=== PATIENT | male | born 1980 | race Caucasian/White ===

== ENCOUNTER 2021-01-28 08:47 | Observation (INO) | payer OTHER, SELFPAY ==
[2021-01-28] VITALS (8 sets, daily range): BP systolic 144–177; BP diastolic 88–105; PULSE 80–88; RESP 14–20; TEMP 36.3–37.6; O2SAT 97–100
--- NOTE | ~2021-01-28 | CT_ITS ---
EXAMINATION: CT abdomen pelvis w con EXAM DATE: 01/28/2021 09:53 INDICATION: Left lower quadrant pain. TECHNIQUE: Spiral CT of the abdomen and pelvis was performed following intravenous injection of 100 m L Omnipaque 350. Axial, coronal and sagittal images of the abdomen and pelvis were reviewed. The do se-length product (DLP) for this examination was 544.42 mGy-cm. The exposure was tailored according to patient size (auto mA exposure control), and iterative reconstruction (ASIR) was used as additiona l dose reduction technique. There is no prior study for comparison. FINDINGS: The liver, spleen, adrenal glands and pancreas are unremarkable. Gallbladder is unremarkab le. No biliary obstruction. Portal and splenic veins are patent. Kidneys enhance symmetrically. T here is no hydronephrosis. There is left inferior calyceal stone measuring 7 mm in size. The prostat e is unremarkable. The bladder is unremarkable. There is no retroperitoneal or pelvic lymphadenopat hy. Small umbilical fat-containing hernia. Scattered colonic diverticulosis. There is moderate amount of inflammation along the descending colon consistent with acute diverticulitis, with tiny foci of adjacent extraluminal gas consistent with mi croperforation. No gross free intraperitoneal gas. The appendix is normal. The stomach and small bow el are unremarkable. The heart is normal in size. There are no pericardial or pleural effusions. T he lung bases are unremarkable. There are no osteoblastic or osteolytic lesions identified. IMPRESSION: 1. Descending colonic diverticulitis complicated by microperforation. No abscess or gross free intra peritoneal air. 2. Left nephrolithiasis. Reviewed, dictated and finalized at location G. IMPRESSION: 1. Descending colonic diverticulitis complicated by microperforation. No absce ss or gross free intraperitoneal air. 2. Left nephrolithiasis.
--- NOTE | 2021-01-28 09:01 | ED.ABDPAIN ---
HPI - Abdominal Pain General Chief Complaint: Abdominal Pain Stated Complaint: abd pain Time Seen by Provider: 01/28/21 08:59 Source: patient Mode of arrival: ambulatory Limitations: no limitations History of Present Illness HPI narrative: Patient presents with left lower quadrant pain that started yesterday, denies any radiation, aggravating or relieving factors, associated with chills and nausea. History of seasonal allergy. Patient is a smoker, drinks occasionally, uses marijuana occasionally. No history of abdominal surgery. Related Data Allergies Allergy/AdvReac Type Severity Reaction Status Date / Time No Known Allergies Allergy Verified 01/28/21 08:59 Review of Systems Review of Systems: CONSTITUTIONAL: Denies fever, chills, or sweats. EYES: Denies visual changes, redness, or discharge. ENT: Denies rhinorrhea, congestion, sore throat, or otalgia. CARDIOVASCULAR: Denies chest pain, palpitations, or edema. RESPIRATORY: Denies cough or dyspnea. GASTROINTESTINAL: Denies abdominal pain, nausea, vomiting, or diarrhea. GENITOURINARY: Denies dysuria or hematuria. SKIN: Denies rash or itching. MUSCULOSKELETAL: Denies back pain, joint pain, or myalgia. NEUROLOGIC: Denies headache, numbness, or weakness. PSYCHIATRIC: Denies anxiety or depression. Exam Narrative: General appearance: Well-developed, well-nourished Skin: Normal color Head: Normocephalic, nontraumatic Eyes: Clear conjunctiva ENT: Oropharynx normal, ears normal, nose normal Neck: Supple, nontender Chest and respiratory: Airway patent, no respiratory distress, no accessory muscle use Heart: Regular rate/rhythm Abdomen: Soft, moderate tenderness left lower quadrant, slight guarding and rebound Vascular: Normal peripheral pulses, normal capillary refill. Musculoskeletal: Normal range of motion, nontender back Neurologic: Alert and oriented ?3, BUSINESS ADVISOR is normal as tested, no gross motor deficit Course Course Emergency Course: Stable, improving Vital Signs Vital signs: Vital Signs Temperature 36.3 C L 01/28/21 08:56 Pulse Rate 85 01/28/21 08:56 Respiratory Rate 20 01/28/21 08:56 Blood Pressure 177/105 H 01/28/21 08:56 Pulse Oximetry 98 01/28/21 08:56 Temperature 36.3 C L 01/28/21 08:56 Pulse Rate 85 01/28/21 08:56 Respiratory Rate 20 10/08/21 08:56 Blood Pressure 155/94 H 01/28/21 09:31 Pulse Oximetry 97 01/28/21 09:31 MDM - Abdominal Pain MDM Narrative Medical decision making narrative: Patient presents with left lower quadrant pain. Diverticulitis is my concern. Labs, CT abdomen pelvis with IV contrast, IV fluid, IV Dilaudid and Zofran ordered. Differential Diagnosis Differential diagnosis: Likely abdominal pain, constipation, diverticulitis and small bowel obstruction Lab Data Result diagrams: 01/28/21 09:12 01/28/21 09:12 Labs: Lab Results 01/28/21 01/28/21 01/28/21 Range/Units 09:12 09:12 10:11 WBC 15.9 H (4.5-10.0) K/mm3 RBC 5.19 (4.6-6.20) M/mm3 Hgb 16.2 (14.0-18.0) g/dL Hct 46.2 (42.0-52.0) % MCV 89.0 (80-100) fl MCH 31.2 (26-34) pg MCHC 35.1 (32-36) g/dl RDW 12.0 (11.5-14.5) % Plt Count 200 (150-375) k/mm3 MPV 9.4 (7.4-10.4) fl Immature Gran % (Auto) 0.4 (0-0.5) % Neut % (Auto) 82.6 H (45.5-73.1) % Lymph % (Auto) 7.7 L (18.3-44.2) % [place] % (Auto) 7.5 (2.6-8.5) % Eos % (Auto) 1.5 (0-4.4) % Baso % (Auto) 0.3 (0.2-1.2) % Lymph # (Auto) 1.22 (0.9-3.2) K/mm3 [place] # (Auto) 1.2 H (0.1-0.6) K/mm3 Eos # (Auto) 0.2 (0-0.3) K/mm3 Baso # (Auto) 0.1 (0.0-0.1) K/mm3 Abs Immat Gran (auto) 0.06 H (0.00-0.031)
[2021-01-28] MEDS: SODIUM CHLORIDE 0.9% IV 1,000 ML 999 ML IV CONT (09:19)
[2021-01-28] MEDS: ONDANSETRON INJ 4 MG/2 ML VIAL IV PUSH ×2 (09:19→11:30)
[2021-01-28 09:23] LABS: Basophils Absolute Auto 0.1 K/mm3 (0.0-0.1); Basophils Percent Auto 0.3 % (0.2-1.2); Eosinophils Absolute Auto 0.2 K/mm3 (0-0.3); Eosinophils Percent Auto 1.5 % (0-4.4); Hematocrit 46.2 % (42.0-52.0); Hemoglobin 16.2 g/dL (14.0-18.0); Immature Granulocyte Absolute 0.06 K/mm3 (0.00-0.031); Immature Granulocyte Percent A 0.4 % (0-0.5); Lymphocytes Absolute Auto 1.22 K/mm3 (0.9-3.2); Lymphocytes Percent Auto 7.7 % (18.3-44.2); Mean Corpuscular HGB Conc 35.1 g/dl (32-36); Mean Corpuscular Hemoglobin 31.2 pg (26-34); Mean Platelet Volume 9.4 fl (7.4-10.4); Monocytes Absolute Auto 1.2 K/mm3 (0.1-0.6); Monocytes Percent Auto 7.5 % (2.6-8.5); Neutrophils Absolute Auto 13.2 K/mm3 (1.3-6.7); Neutrophils Percent Auto 82.6 % (45.5-73.1); Platelet Count Result 200 k/mm3 (150-375); Red Blood Count 5.19 M/mm3 (4.6-6.20); White Blood Count 15.9 K/mm3 (4.5-10.0)
[2021-01-28 09:33] LABS: Alanine Aminotransferase 27 U/L (4-50); Albumin Level 4.7 g/dL (3.5-5.1); Alkaline Phosphatase 56 U/L (38-126); Anion Gap 8 mmol/L (8-16); Aspartate Amino Transferase 25 U/L (17-59); Bilirubin,Total 0.9 mg/dL (0.2-1.3); Blood Urea Nitrogen 15 mg/dL (9-20); Calcium 9.4 mg/dL (8.4-10.2); Carbon Dioxide 28 mmol/L (22-30); Chloride 104 mmol/L (98-107); Estimated CRCL calculation 100 ml/min; Estimated Glomerular Filt Rate > 60; Glucose 129 mg/dL (65-110); Lipase 235 U/L (23-300); Sodium 140 mmol/L (137-145)
[2021-01-28 10:40] LABS: Add Urine Microscopic? YES; Appearance Urine Clear (Clear); Bilirubin Urine Negative (Negative); Blood Urine 1+ (Negative); Color Urine Yellow (Yellow); Glucose Urine UA Negative (Negative); Ketones Urine 1+ mg/dL (Negative); Leukocyte Esterase Ur Negative LEU/UL (Negative); Mucus Urine Rare /lpf; Nitrate Urine Negative (Negative); Protein Urine Negative (Negative); Urobilinogen Urine Negative mg/dL (<2.0); WBC Urine 0-3 /hpf
[2021-01-28 10:41] LABS: Specific Grav Ur 1.043 (1.001-1.035)
[2021-01-28] MEDS: SODIUM CHLORIDE 0.9% IV 1,000 ML 150 ML IV CONT (11:30)
[2021-01-28] MEDS: HYDROmorphone HCL INJ (*CRX) 1 MG/ML SYR 0.5 MG IV PUSH (11:31)
[2021-01-28] MEDS: metroNIDAZOLE 500 MG/ISO 100ML 500 MG/100 ML BAG 100 MG IVPB ×2 (11:31→21:47)
--- NOTE | 2021-01-28 13:11 | ADMGEN ---
This patient, Roddy Tong, was admitted to Medical Room 341-01. Patient/family oriented to hospital policies and general routines including ID bracelet, bed and alarms, visiting hours, pain management, procedures, bathroom and other care routines, personal items, smoking policy, room service/diet, and visiting hours. Information on how to activate the Rapid Response Team has been discussed. Patient/Family are encouraged to report perceived risks to care and to ask questions if they do not understand what they are told or what they should do. Patient resting in bed resting comfortably with no complaints at this time. Will continue to monitor patient.
--- NOTE | 2021-01-28 14:26 | PM.IMHP ---
H&P: HPI History of Present Illness Date/Time: 01/28/21 14:26 This is a 40-year-old male patient who has a history of diverticulosis as well as PE and DVTs. The patient stated that he tried to change his diet to eat healthier. The patient stated that he had Mosotho food with jalapeno peppers. The patient came to the emergency room today with left lower quadrant pain that started yesterday. The patient has chills and nausea as well. The patient does use marijuana on a nightly basis. Abdominal pelvis CT was read as descending colonic diverticulitis complicated by microperforation. No abscess or gross free intraperitoneal air. Left nephrolithiasis. The patient stated that he has not had any previous history of any kidney stones. The patient was started on IV fluids, Dilaudid cough Levaquin, Flagyl, and Zofran. surgery has been consulted agree to see the patient. The patient stated that he was seen by surgeon down in the emergency room. The patient has been started on Flagyl and Levaquin. The patient is being admitted for observation status on the date of service of 01/28/2021. Chief Complaint: Abdominal pain Review of Systems Review of Systems: All systems reviewed & are unremarkable except as noted in HPI and below Constitutional: Constitutional: Reports as per HPI and Reports no additional constitutional complaints Eyes: Eyes: Reports as per HPI and Reports no additional eye complaints ENT: Reports system reviewed and no additional complaints, except as documented and Reports Normal hearing present Cardiovascular: Cardiovascular: Reports no additional cardiovascular complaints Respiratory: Respiratory: Reports no additional respiratory complaints and Reports no additional respiratory complaints Gastrointestinal: Gastrointestinal: Reports as per HPI and Reports no additional gastrointestinal complaints Musculoskeletal: Musculoskeletal: Reports no additional musculoskeletal complaints Integumentary/Breasts: Skin/Breast: Reports system reviewed and no additional complaints, except as docu and Reports as per HPI Neurologic: Reports system reviewed and no additional complaints, except as documented, Reports as per HPI and Reports Normal hearing present Psychiatric: Psychiatric: Reports no additional psychiatric complaints and Reports as per HPI Endocrine: Endocrine: Reports no additional endocrine complaints Hematologic/Lymphatic: Hematologic/Lymphatic: Reports no additional hematologic/lymphatic complaints Allergic/Immunologic: Allergic/Immunologic: Reports no additional allergic/immunologic complaints [facility] Past Medical History Medical History (Updated 01/28/21 @ 15:55 by Renetta A. Benhoff, PROFESSOR OF GERMAN) Diverticulosis History of pulmonary embolism Personal history of deep vein thrombosis Tobacco abuse Surgical History Surgical History (Updated 01/28/21 @ 15:55 by Renetta Cook NP) H/O colonoscopy with polypectomy Family History Family History (Updated 01/28/21 @ 15:55 by Renetta Cook NP) Mother Carcinoma of colon Father Colon polyp Social History Social History (Updated 01/28/21 @ 15:57 by Renetta Cook NP) Social History: the patient stated that he smokes a pack a cigarettes a day. He has 1 child. Patient works for [employer]. He smokes marijuana nightly. He does not use any alcohol or illicit drugs. His is the power grocery clerk checking for healthcare. The patient desires to be a full code. Smoking packs per day: 1 Smoking cigarettes per day: 20.0 Years smoked: 20 Smoking pack-years: 20.00 Smoking status: Current every day smoker Tobacco type: cigarettes Substance use: current Substance use type: marijuana Other substance usage details: daily Spiritual care concerns: No Meds Home Medications and Allergies Home Medications Medication Instructions Recorded Confirmed Type cetirizine [Zyrtec] 5 mg PO DAILY 01/28/21 01/28/21 History Allergies Al
--- NOTE | 2021-01-28 14:28 | PM.CNGS ---
Assessment and Plan Assessment and plan (1) Diverticulitis of colon with perforation: Code(s): K57.20 - Diverticulitis of large intestine with perforation and abscess without bleeding Status: Acute Assessment and Plan: I agree with plan for bowel rest except ice chips, IV fluids, p.r.n. analgesics, and IV antibiotics. I explained to the patient that there is a slight chance that this may not respond to medical therapy and surgery could be required. He is in too much pain to go home from the emergency room. I will follow along with you. Thanks for asking me to see this patient in consultation. History of Present Illness Consult details Consult date: 01/28/21 Reason for consult: abdominal pain ( Left lower quadrant) Requesting physician: Gisela Reid MD Narrative: patient is a 40-year-old man who started having left lower quadrant abdominal pain yesterday. He had eaten some very spicy Afghan food yesterday but no history of eating significant amounts of popcorn peanuts or seeds. He started having left lower quadrant abdominal pain which lasted through the night and only got worse. He has had some nausea but no vomiting. He has also had chills. He came to the emergency room and was evaluated. He was noted to have tenderness in the left lower quadrant [place] [id number] scan was done and shows evidence of acute diverticulitis. There are several small foci in the area of the sigmoid colon consistent with micro perforation and small areas of free air. He continues to have quite a bit of pain. He has been admitted to the hospitalist and I am seeing the patient in consultation per request of the hospitalist service. He has not had diverticulitis in the past. Patient smokes and does use marijuana. His only home medication is Zyrtec. He is generally healthy. Review of Systems Review of Systems: All systems reviewed & are unremarkable except as noted in HPI and below Constitutional: Constitutional: Reports as per HPI, Reports chills, Reports difficulty sleeping, Denies fever(s) and Reports poor appetite Cardiovascular: Cardiovascular: Denies chest pain, Denies diaphoresis, Denies dyspnea and Denies paroxysmal nocturnal dyspnea Respiratory: Respiratory: Denies chest congestion, Denies cough and Denies dyspnea Gastrointestinal: Gastrointestinal: Reports abdominal pain, Reports GI cramping, Reports nausea and Denies vomiting Integumentary/Breasts: Skin/Breast: Denies lesions and Denies rash PMFSH Social History Social History Smoking packs per day: 1 Smoking cigarettes per day: 20.0 Years smoked: 20 Smoking pack-years: 20.00 Smoking status: Current every day smoker Tobacco type: cigarettes Substance use: current Substance use type: marijuana Other substance usage details: daily Spiritual care concerns: No Meds Home Medications and Allergies Home Medications Medication Instructions Recorded Confirmed Type cetirizine [Zyrtec] 5 mg PO DAILY 01/28/21 01/28/21 History Allergies Allergy/AdvReac Type Severity Reaction Status Date / Time No Known Allergies Allergy Verified 01/28/21 08:59 Vital Signs Vital Signs - 24 hr 01/28/21 08:56 01/28/21 09:31 01/28/21 11:32 Temperature 36.3 C L Pulse Rate 85 86 Respiratory Rate 20 Blood Pressure 177/105 H 155/94 H 172/104 H Pulse Oximetry 98 97 100 01/28/21 12:13 01/28/21 12:37 01/28/21 13:35 Temperature 37.6 C H Pulse Rate 86 86 88 Respiratory Rate 18 19 18 Blood Pressure 162/98 H 162/98 H 177/92 H Pulse Oximetry 99 99 99 01/28/21 14:23 Temperature Pulse Rate Respiratory Rate Blood Pressure Pulse Oximetry 98 Exam Const: General: cooperative, no acute distress, well developed, alert, awake and uncomfortable Nutritional Appearance: thin Orientation/consciousness: patient oriented x3 Limitations: no limitations H
[2021-01-28] MEDS: ENOXAPARIN 40 MG/0.4 ML SYRINGE SUB-Q (15:19)
[2021-01-28] MEDS: SODIUM CHLORIDE 0.9% IV 1,000 ML 100 ML IV CONT (15:20)
[2021-01-28] MEDS: NICOTINE (*PBKC) 21 MG PATCH 1 PATCH TRANSDERM (16:42)
[2021-01-28] MEDS: IBUPROFEN IV 800 MG/200 ML 800 MG/200 ML BAG 400 MG IVPB ×2 (16:42→21:45)
[2021-01-29] MEDS: IBUPROFEN IV 800 MG/200 ML 800 MG/200 ML BAG 400 MG IVPB ×2 (04:42→10:34)
[2021-01-29 05:20] VITALS: BP 158/98; PULSE 88; RESP 12; TEMP 37.6; O2SAT 98
[2021-01-29] MEDS: metroNIDAZOLE 500 MG/ISO 100ML 500 MG/100 ML BAG 100 MG IVPB (05:35)
[2021-01-29 05:47] LABS: Hemoglobin 13.9 g/dL (14.0-18.0); Mean Corpuscular HGB Conc 34.8 g/dl (32-36); Mean Corpuscular Volume 89.3 fl (80-100); Mean Platelet Volume 9.5 fl (7.4-10.4); Platelet Count Result 147 k/mm3 (150-375); Red Blood Count 4.48 M/mm3 (4.6-6.20); White Blood Count 14.1 K/mm3 (4.5-10.0)
[2021-01-29] MEDS: SODIUM CHLORIDE 0.9% IV 1,000 ML 100 ML IV CONT (05:52)
[2021-01-29 06:19] LABS: Anion Gap 7 mmol/L (8-16); Blood Urea Nitrogen 8 mg/dL (9-20); Calcium 8.4 mg/dL (8.4-10.2); Carbon Dioxide 25 mmol/L (22-30); Chloride 106 mmol/L (98-107); Estimated CRCL calculation 100 ml/min; Estimated Glomerular Filt Rate > 60; Glucose 119 mg/dL (65-110); Lactate Dehydrogenase 285 U/L (313-618); Magnesium 1.7 mg/dL (1.6-2.3); Potassium 3.5 mmol/L (3.4-5.0); Sodium 138 mmol/L (137-145)
[2021-01-29 06:47] LABS: Thyroid Stimulating Hormone Reflex 0.276 uIU/mL (0.465-4.68)
[2021-01-29 08:24] LABS: Free T4 Free Thyroxine Reflex 1.79 ng/dL (0.78-2.19)
[2021-01-29] MEDS: NICOTINE (*PBKC) 21 MG PATCH 1 PATCH TRANSDERM (09:47)
[2021-01-29 10:17] LABS: Total Triiodothyronine (T3) 0.84 NG/ML (0.97-1.69)
[2021-01-29] MEDS: KCL 20 MEQ/D5/0.9% SOD CHL 1,000 ML 80 ML IV CONT (10:34)
--- NOTE | 2021-01-29 11:49 | PM.PNGS ---
Progress Note: A&P Assessment and Plan (1) Diverticulitis of colon with perforation: Code(s): K57.20 - Diverticulitis of large intestine with perforation and abscess without bleeding Status: Acute Assessment and Plan: improving. Will start clear liquids. Taking only IV ibuprofen for pain. Will switch that to oral does q.6 hours. Still has p.r.n. analgesics as well. Up in chair and up walking. Recheck labs again tomorrow. Subjective Subjective Date/Time Seen: 01/29/21 11:49 Patient reports: feels better, pain is less and afebrile Review of Systems Review of Systems: All systems reviewed & are unremarkable except as noted in HPI and below Constitutional: Constitutional: Denies body ache(s), Denies chills, Denies fever(s), Denies headache(s) and Denies night sweats Cardiovascular: Cardiovascular: Denies chest pain and Denies dyspnea Respiratory: Respiratory: Denies cough and Denies dyspnea Gastrointestinal: Gastrointestinal: Reports as per HPI, Reports abdominal pain ( less than yesterday), Denies heartburn, Denies nausea and Denies vomiting Neurologic: Denies confusion and Denies headache(s) Exam Const: General: comfortable and no acute distress; No confusion Orientation/consciousness: patient oriented x3 and No confusion GI: Inspection: normal to inspection, non-distended and scaphoid GI Palp: Yes Soft to palpation, Yes Tenderness to palpation present (GI) ( board mixer tender left lower quadrant but not as much as yesterday.), Yes Guarding due to palpation present (GI) ( Left lower quadrant with mild guarding), Yes No hepatosplenomegaly present, No Hernia present and No Palpable mass present Auscultation: Hypoactive bowel sounds present Neuro: General: patient oriented x3, no focal motor deficits and No confusion Extrem: General: no calf tenderness and no edema Psych: Affect: normal affect Insight: Good insight present (Psych) Judgement: Good judgement present (Psych) Objective Data Vital Signs Vital Signs: Vital Signs - 24 hr 01/28/21 12:13 01/28/21 12:37 01/28/21 13:35 Temperature 37.6 C H Pulse Rate 86 86 88 Respiratory Rate 18 19 18 Blood Pressure 162/98 H 162/98 H 177/92 H Pulse Oximetry 99 99 99 01/28/21 14:23 01/28/21 19:55 01/29/21 05:20 Temperature 37.0 C 37.6 C Pulse Rate 80 88 Respiratory Rate 14 12 Blood Pressure 144/88 H 158/98 H Pulse Oximetry 98 98 98 Intake/Output Intake/Output: Intake & Output 01/26/21 01/27/21 01/28/21 01/29/21 23:59 23:59 23:59 23:59 Intake Total 2700 1900 Output Total 200 350 Balance 2500 1550 Meds/Results Medications: Active Medications Generic Name Dose Route Start Last Admin Trade Name Freq PRN Reason Stop Dose Admin Acetaminophen 500 mg 01/28/21 14:38 Acetaminophen 500 Mg Tablet PO Q6H PRN Mild Pain (1-3) or Fever Hydrocodone Bitart/Acetaminophen 1 tab 01/29/21 11:44 Hydrocodone/Acetaminophen (*Crx) 5-325 Mg Tablet PO Q4H PRN Pain Rated 4-6 Hydrocodone Bitart/Acetaminophen 1 tab 01/29/21 11:44 Hydrocodone/Acetaminophen (*Crx) 7.5-325 Mg Tablet PO Q4H PRN Pain Rated 7-10 Enoxaparin Sodium 40 mg 01/29/21 09:00 01/29/21 09:45 Enoxaparin 40 Mg/0.4 Ml Syringe SUB-Q Not Given DAILY AVIS Piperacillin/Tazobactam/Dextrose 3.375 gm in 50 mls @ 100 mls/hr 01/28/21 15:00 01/29/21 10:38 Zosyn 3.375 Gm/D5w 50ml Pm IVPB Infused Q6H AVIS Infusion Ibuprofen 800 mg 01/29/21 11:45 Ibuprofen 400 Mg Tablet PO Q6H AVIS Morphine Sulfate 2 mg 01/28/21 14:38 Morphine Sulfate (*Crx) 2 Mg/Ml Inj IV PUSH Q2H PRN Pain Rated 4-6 Morphine Sulfate 4 mg 01/28/21 14:38 Morphine Sulfate (*Crx) 4 Mg/Ml Inj IV PUSH Q2H PRN Pain Rated 7-10 Naloxone HCl 0.1 mg 01/28/21 14:38 Naloxone Hcl 0.4 Mg/Ml Vial IV PUSH Q2M PRN Opiate Reversal Nicotine 1 patch 01/28/21 15:55 01/29/21 09:47 Nicotine (*Pbkc) 21 Mg P
--- NOTE | 2021-01-29 12:50 | PM.IMPN ---
Progress Note: A&P Assessment and Plan (1) Diverticulitis of colon with perforation: Code(s): K57.20 - Diverticulitis of large intestine with perforation and abscess without bleeding Status: Acute Assessment and Plan: He is currently on Zosyn which will be continued. CT scan showed Descending colonic diverticulitis complicated by microperforation. No abscess or gross free intraperitoneal air. 2. Left nephrolithiasis. Surgery service is following and their inputs are appreciated. He has been started on clear liquid diet which will be advanced based on his ability to tolerate. He is continued on IV fluids. Pain control morphine, [place] and Motrin. Wean and taper off opiates based on his symptoms control. His blood pressure has been noticed to be elevated which may likely be as a result of pain. Continue to monitor. (2) History of pulmonary embolism: Code(s): Z86.711 - Personal history of pulmonary embolism Status: Chronic Assessment and Plan: Patient is no longer on any anticoagulation. He is on subcu Lovenox for DVT prophylaxis. (3) Tobacco abuse: Code(s): Z72.0 - Tobacco use Status: Chronic Assessment and Plan: He was encouraged to stop smoking. Currently on nicotine patch Subjective Date/time seen: 01/29/21 12:50 He is feeling better. His abdominal pain has improved but still having some discomfort. He denied have any nausea vomiting or diarrhea. He denied to have any fever and chills. Review of Systems Review of Systems: A comprehensive review of systems has been reviewed with the patient and most of the symptoms are negative except the one's mentioned above in HPI. Exam Narrative: General awake and alert not in acute distress HEENT no discharge Neck supple dull tenderness CVS S1-S2 no murmur Respiratory no wheezes or crepitation respiration nonlabored GI soft mild tenderness at the left side [place] alert oriented x3 and grossly nonfocal neurological exam Psychiatric cooperative appropriate mood and affect Musculoskeletal normal range of motion or joint swelling no rashes Extremities no edema Objective Data Vital Signs Vital Signs: Vital Signs - 24 hr 01/28/21 13:35 01/28/21 14:23 01/28/21 19:55 Temperature 37.6 C H 37.0 C Pulse Rate 88 80 Respiratory Rate 18 14 Blood Pressure 177/92 H 144/88 H Pulse Oximetry 99 98 98 01/29/21 05:20 Temperature 37.6 C Pulse Rate 88 Respiratory Rate 12 Blood Pressure 158/98 H Pulse Oximetry 98 Intake/Output Intake/Output: Intake & Output 01/26/21 01/27/21 01/28/21 01/29/21 23:59 23:59 23:59 23:59 Intake Total 2700 1980 Output Total 200 350 Balance 2500 1630 Meds/Results Medications: Active Medications Generic Name Dose Route Start Last Admin Trade Name Freq PRN Reason Stop Dose Admin Acetaminophen 500 mg 01/28/21 14:38 Acetaminophen 500 Mg Tablet PO Q6H PRN Mild Pain (1-3) or Fever Hydrocodone Bitart/Acetaminophen 1 tab 01/29/21 11:44 Hydrocodone/Acetaminophen (*Crx) 5-325 Mg Tablet PO Q4H PRN Pain Rated 4-6 Hydrocodone Bitart/Acetaminophen 1 tab 01/29/21 11:44 Hydrocodone/Acetaminophen (*Crx) 7.5-325 Mg Tablet PO Q4H PRN Pain Rated 7-10 Enoxaparin Sodium 40 mg 01/29/21 09:00 01/29/21 09:45 Enoxaparin 40 Mg/0.4 Ml Syringe SUB-Q Not Given DAILY AVIS Piperacillin/Tazobactam/Dextrose 3.375 gm in 50 mls @ 100 mls/hr 01/28/21 15:00 01/29/21 10:38 Zosyn 3.375 Gm/D5w 50ml Pm IVPB Infused Q6H AVIS Infusion Ibuprofen 800 mg 01/29/21 16:00 Ibuprofen 400 Mg Tablet PO Q6H AVIS Morphine Sulfate 2 mg 01/28/21 14:38 Morphine Sulfate (*Crx) 2 Mg/Ml Inj IV PUSH Q2H PRN Pain Rated 4-6 Morphine Sulfate 4 mg 01/28/21 14:38 Morphine Sulfate (*Crx) 4 Mg/Ml Inj IV PUSH Q2H PRN Pain Rated 7-10 Naloxone HCl 0.1 mg 01/28/21 14:38 Naloxone Hcl 0.4 Mg/M
[2021-01-29 14:00] VITALS: BP 153/88; PULSE 78; RESP 12; TEMP 37.1; O2SAT 100
[2021-01-29] MEDS: POTASSIUM CHLORIDE 20 MEQ TABLET PO (15:13)
[2021-01-29] MEDS: IBUPROFEN 400 MG TABLET 800 MG PO ×2 (16:47→21:44)
[2021-01-29] MEDS: POTASSIUM CHLORIDE 20 MEQ TABLET.ER PO (16:47)
[2021-01-29 20:00] VITALS: BP 145/87; PULSE 76; RESP 20; TEMP 37.3; O2SAT 99
[2021-01-29 20:40] VITALS: O2SAT 99
[2021-01-30] MEDS: IBUPROFEN 400 MG TABLET 800 MG PO ×2 (04:41→09:47)
[2021-01-30 06:04] LABS: Hematocrit 38.8 % (42.0-52.0); Hemoglobin 13.6 g/dL (14.0-18.0); Mean Corpuscular HGB Conc 35.1 g/dl (32-36); Mean Corpuscular Hemoglobin 31.7 pg (26-34); Mean Corpuscular Volume 90.4 fl (80-100); Platelet Count Result 165 k/mm3 (150-375); Red Blood Count 4.29 M/mm3 (4.6-6.20); Red Cell Distribution Width 12.3 % (11.5-14.5)
[2021-01-30 06:18] LABS: Anion Gap 6 mmol/L (8-16); Blood Urea Nitrogen 8 mg/dL (9-20); Calcium 8.9 mg/dL (8.4-10.2); Carbon Dioxide 28 mmol/L (22-30); Chloride 107 mmol/L (98-107); Estimated CRCL calculation 100 ml/min; Estimated Glomerular Filt Rate > 60; Glucose 120 mg/dL (65-110); Lipase 356 U/L (23-300); Magnesium 2.1 mg/dL (1.6-2.3); Potassium 3.6 mmol/L (3.4-5.0); Sodium 141 mmol/L (137-145)
[2021-01-30] MEDS: POTASSIUM CHLORIDE 20 MEQ TABLET.ER PO (09:46)
--- NOTE | 2021-01-30 14:01 | PM.DS ---
DS: Admitting Diagnosis Discharge Date 01/30/2021 Admitting Diagnosis Acute diverticulitis of large intestine History of pulmonary embolism not on anti coagulation Significant smoking history DS: Discharge Diagnosis Discharge Diagnosis (1) Diverticulitis of colon with perforation: Code(s): K57.20 - Diverticulitis of large intestine with perforation and abscess without bleeding Status: Acute Assessment and Plan: He was on Zosyn while he was here in the hospital. He is going to be discharged on ciprofloxacin and Flagyl for further [address] scan showed Descending colonic diverticulitis complicated by microperforation. No abscess or gross free intraperitoneal air. 2. Left nephrolithiasis. Surgery service is following and their inputs are appreciated. He has been started on clear liquid diet which will be advanced based on his ability to tolerate. He is continued on IV fluids. Today the plan was to advance the diet to full liquid diet but patient wants to leave at any cost today. Surgery has re-evaluated him and agrees that he can go home and cleared him for discharge. Pain control morphine, [place] and Motrin. His blood pressure has been noticed to be elevated which may likely be as a result of pain. Continue to monitor. He will follow with his primary care physician for rechecking his blood pressure to see if it is still elevated. If that is the case then he would need to be started on antihypertensive medications. (2) History of pulmonary embolism: Code(s): Z86.711 - Personal history of pulmonary embolism Status: Chronic Assessment and Plan: Patient is no longer on any anticoagulation. He was on subcu Lovenox for DVT prophylaxis. (3) Tobacco abuse: Code(s): Z72.0 - Tobacco use Status: Chronic Assessment and Plan: He was encouraged to stop smoking. Currently on nicotine patch DS: Summary Hospital Course Hospital Course: As above Time Spent with Patient Time attestation: Total time spent providing and/or coordinating discharge services: > 35 minutes Exam Narrative: General awake and alert not in acute distress HEENT no discharge Neck supple dull tenderness CVS S1-S2 no murmur Respiratory no wheezes or crepitation respiration nonlabored GI soft mild tenderness at the left side ON SITE NURSE alert oriented x3 and grossly nonfocal neurological exam Psychiatric cooperative appropriate mood and affect Musculoskeletal normal range of motion or joint swelling no rashes Extremities no edema DS: Data Data Completed and Pending Labs on day of discharge: Labs from last 24 hours 01/30/21 01/30/21 05:17 05:17 WBC 13.0 H RBC 4.29 L Hgb 13.6 L Hct 38.8 L MCV 90.4 MCH 31.7 MCHC 35.1 RDW 12.3 Plt Count 165 MPV 10.0 Sodium 141 Potassium 3.6 Chloride 107 Carbon Dioxide 28 Anion Gap 6 L BUN 8 L Creatinine 0.90 Estim Creat Clear Calc 100 Estimated GFR > 60 Glucose 120 H Calcium 8.9 Magnesium 2.1 Lipase 356 H Discharge Plan Discharge Attending physician on discharge: [place] Celis Consulting providers: Alexander Cook Discharging Clinician: [place] Celis Anticipated Discharge Date/Time: 01/30/21 13:57 Patient Disposition: Home, Self-Care Activity: as tolerated Diet: low fiber Discharge Instructions: Low fiber diet for 2 weeks then resume Regular Patient Instructions: Antibiotic Form, How to Stop Smoking (DC), Low Fiber Diet (DC) Stand Alone Forms: General Discharge Information Follow-up/Referrals: Zakia,Ricardo Herrera MD [Primary Care Provider] - 1 Week Alexander Cook MD [Physician] - 2 Weeks Discharge Medications: New ciprofloxacin HCl [Cipro] 500 mg tablet 500 mg PO Q12H Qty: 14 RF: 0 metronidazole 500 mg tablet 500 mg PO Q8H Qty: 21 RF: 0 Continued cetirizine [Zyrtec] 5 mg Tablet 5 mg PO DAILY RF: 0 Date of admission: 01/28/21 13
== END 2021-01-30 14:20 | disposition home or self-care (01) ==
LOC: ANHED 11:02 → ANH3MED 13:13
PROVIDERS: Nurse Practitioner; Surgery; Admitting Provider Internal Medicine; Emergency Provider Emergency Medicine; PCP Family Medicine; Visit Provider Internal Medicine Critical Care Medicine
DX: K57.20 Diverticulitis of large intestine with perforation and abscess without bleeding (principal); N20.0 Calculus of kidney; R10.32 Left lower quadrant pain; F17.210 Nicotine dependence, cigarettes, uncomplicated; Z86.718 Personal history of other venous thrombosis and embolism; Z86.711 Personal history of pulmonary embolism
CPT/HCPCS: 36415; 74177; 80048; 80053; 81001; 83615; 83690; 83735; 84439; 84443; 84480; 85025; 85027; 96361; 96365; 96366; 96367; 96372; 96375; 99285; A9270; G0378; J1170; J1650; J1741; J1956; J2405; J2543; J3480; J7030; Q9967